=== PATIENT | male | born 1950 | race Hispanic/Latino ===

== ENCOUNTER 2016-08-14 09:20 | Emergency (ER) | payer OTHER ==
[2016-08-14 09:40] VITALS: O2SAT 100
[2016-08-14] MEDS ORDERED: Sodium Chloride 0.9% 500 ML IV ONE ×2 (10:15→10:49)
[2016-08-14] MEDS ORDERED: Sodium Chloride 0.9% 0 ML ONE (10:45)
[2016-08-14 10:48] LABS: EOS % 1.2 % (0.0-4.0); HEMATOCRIT 37.7 % (35.0-51.0); LYMPH # 0.8 K/uL (1.0-4.3); LYMPH % 21.7 % (20.0-40.0); MEAN CELL VOLUME 97.8 fL (80.0-94.0); MEAN CORPUSCULAR HEMOGLOBIN 32.2 pg (27.0-31.0); MEAN CORPUSCULAR HGB CONC 32.9 g/dL (33.0-37.0); MEAN PLATELET VOLUME 7.4 fL (7.2-11.7); MONO # 0.3 K/uL (0.0-0.8); RED CELL DISTRIBUTION WIDTH 12.9 % (11.5-14.5); WHITE BLOOD COUNT 3.7 K/uL (4.8-10.8)
[2016-08-14 10:54] LABS: CHLORIDE 101 mmol/L (98-107); POTASSIUM 3.7 mmol/L (3.6-5.2); SODIUM 138 mmol/L (132-148)
[2016-08-14 10:56] LABS: GFR AFRICAN-AMERICAN > 60; RBC URINE < 1 /hpf (0-3); URINE BACTERIA RARE (<OCC); URINE BILIRUBIN NEGATIVE (NEGATIVE); URINE BLOOD NEGATIVE (NEGATIVE); URINE COLOR Yellow (YELLOW); URINE GLUCOSE (UA) NORMAL (Normal); URINE KETONE TRACE mg/dL (NEGATIVE); URINE LEUKOCYTE ESTERASE NEG Leu/uL (Negative); URINE PROTEIN NEGATIVE (NEGATIVE); URINE UROBILINOGEN NORMAL mg/dL (0.2-1.0); WBC URINE 1 /hpf (0-5)
[2016-08-14 10:57] LABS: ALB/GLOB RATIO 1.2 (1.0-2.1); ALKALINE PHOSPHATASE 113 U/L (38-126); ALT/SGPT 20 U/L (21-72); AST/SGOT 23 U/L (17-59); BILIRUBIN,TOTAL 0.5 mg/dL (0.2-1.3); BLOOD UREA NITROGEN 14 mg/dL (9-20); CALCIUM 7.6 mg/dl (8.6-10.4); CARBON DIOXIDE 26 mmol/L (22-30); GLUCOSE,RANDOM 90 mg/dL (75-110)
[2016-08-14 10:59] LABS: INR 1.1
--- NOTE | 2016-08-14 11:04 | RAD ---
Chest x-ray single frontal view History: Weakness. Comparison: None available. Findings: Hyperinflation of the lung concepcion suggestive for COPD and or emphysematous changes. Upper lobe granulomatous changes. No focal infiltrate or effusion. Impression: No acute infiltrate or effusion.
--- NOTE | 2016-08-14 11:39 | C.PDOC ---
History Of Present Illness 66 y/o male presents to the ED for evaluation of generalized weakness which began approx1 year ago. Patient also reports an unintentional 50 pound weight loss within the past year. Patient notes he has been experiencing generalized body aches and headache this weekend. Patient states his PMD is Dr. Gary, whose office is located in [place]. He underwent bloodwork several weeks ago but has not followed up with the office to discuss results. He denies fever, chills, chest pain, shortness of breath, abdominal pain, nausea, vomiting, diarrhea, dysuria/hematuria. Time Seen by Provider: 08/14/16 09:41 Chief Complaint (Nursing): Medical Clearance History Per: Patient History/Exam Limitations: no limitations Onset/Duration Of Symptoms: Other (approx 1 year ) Current Symptoms Are (Timing): Still Present Severity: Mild Additional History Per: Patient Past Medical History Reviewed: Historical Data, Nursing Documentation, Vital Signs Vital Signs: Last Vital Signs Temp 97.8 F 08/14/16 11:45 Pulse 64 08/14/16 11:45 Resp 16 08/14/16 11:45 BP 160/80 H 08/14/16 11:45 Pulse Ox 100 08/14/16 14:28 - Medical History PMH: HTN Surgical History: No Surg Hx Family History: States: No Known Family Hx - Social History Hx Alcohol Use: No Hx Substance Use: No - Immunization History Hx Tetanus Toxoid Vaccination: No Hx Influenza Vaccination: No Hx Pneumococcal Vaccination: No Review Of Systems Except As Marked, All Systems Reviewed And Found Negative. Constitutional: Positive for: Weakness (generalized ), Weight loss (around 50lbs. ), Other (+generalized body aches ) Cardiovascular: Negative for: Chest Pain, Palpitations Respiratory: Negative for: Cough, Shortness of Breath Gastrointestinal: Negative for: Nausea, Vomiting, Abdominal Pain, Diarrhea Genitourinary: Negative for: Dysuria, Hematuria Neurological: Positive for: Headache Physical Exam - Physical Exam Appears: Well, Non-toxic, No Acute Distress, Other (frail appearing ) Skin: Warm, Dry, Ecchymosis (scattered ecchymoses B/L extremities ) Head: Atraumatic, Normacephalic Eye(s): bilateral: Normal Inspection, PERRL, EOMI Oral Mucosa: Moist Throat: Normal, No Erythema, No Exudate Neck: Normal, Normal ROM, Supple Cardiovascular: Rhythm Regular Respiratory: Normal Breath Sounds, No Rales, No Rhonchi, No Wheezing Gastrointestinal/Abdominal: Normal Exam, Bowel Sounds, Soft, No Tenderness Extremity: Normal ROM, No Tenderness, No Calf Tenderness, No Deformity, No Swelling Extremity: Bilateral: Atraumatic, Normal Color And Temperature, Normal ROM Pulses: Left Dorsalis Pedis: Normal, Right Dorsalis Pedis: Normal Neurological/Psych: Oriented x3, Normal Speech, Normal Cognition Gait: Steady ED Course And Treatment - Laboratory Results Result Diagrams: 08/14/16 10:42 08/14/16 10:42 ECG: Interpreted By Me, Viewed By Me, Discussed With On Air Announcer ECG Rhythm: Sinus Rhythm, R BBB ECG Interpretation: No Acute Changes, No Changes From Prior (05/21/2015) Interpretation Of ECG: Normal Sinus Rhythm at rate 65bpm. Normal axis. Right Bundle Branch Block. No acute ST/T wave changes. No changes from prior EKG from 05/21/2015. O2 Sat by Pulse Oximetry: 100 (on RA) Pulse Ox Interpretation: Normal - Other Rad CXR X-Ray: Interpreted by Me, Viewed By Me, Read By Radiologist Interpretation: Accession No. : [id number]. Patient Name / ID : ANTONIO MOMIN / [id number]. Exam Date : 08/14/2016 10:16:48 ( Approved ). Study Comment : Sex / Age : M / 66Y. Creator : Alfonso Scanlon MD. Dictator : Alfonso Scanlon MD. Flush Tester : V Block Saw Operator : Alfonso Scanlon MD. Approver2 : Report Date : 08/14/2016 11:02:45. My Comment : . Chest x-ray single frontal view. History: Weakness. Comparison: None available. Findings: Hyperinflation of the lung concepcion suggestive for COPD and or emphysematous changes. Upper lobe granulomatous changes. No focal infiltrate or effusion. Impression: No acute infiltrate or effusion. Progress Note: Blood work, CXR, EKG ordered and reviewed. Patient given IV NS bolus. Reevaluation Time: 11:40 Reassessment Condition: Improved (Patient reassessed, currently resting comfortably, in no current pain/distress. Blood work unremarkable except for mild elevation in PT/PTT. CXR and EKG also (-). Patient is comfortable being discharged home, was instructed to follow up with PMD in 1-2 days. He was given copies of all results, and he understands he should return to ED if symptoms worsen.) Disposition Counseled Patient/Family Regarding: Studies Performed, Diagnosis, Need For Followup - Disposition Referrals: Edith Gary MD [Primary Care Provider] - Disposition: HOME/ ROUTINE Disposition Time: 11:40 Condition: STABLE Additional Instructions: FOLLOW UP WITH YOUR DOCTOR IN 1-2 DAYS, AND BRING RESULTS TO HIM/HER DRINK PLENTY OF FLUIDS RETURN TO ER IF SYMPTOMS WORSEN Instructions: Viral Syndrome (ED), Weakness (ED) Forms: Work Excuse Print Language: HEBREW - POA Present On Arrival: None - Clinical Impression Clinical Impression: Medical assessment, Generalized weakness - Scribe Statement The provider has reviewed the documentation as recorded by the Scribe (Keyana Barone) Provider Attestation: All medical record entries made by the Scribe were at my direction and personally dictated by me. I have reviewed the chart and agree that the record accurately reflects my personal performance of the history, physical exam, medical decision making, and the department course for this patient. I have also personally directed, reviewed, and agree with the discharge instructions and disposition.
[2016-08-14 11:46] VITALS: BP 160/80; PULSE 64; RESP 16; TEMP 97.8
--- NOTE | 2016-08-16 12:01 | CARD ---
APPROVED REPORT EKG Measurement Heart [id number] <Conclusion> Normal sinus rhythm Right bundle branch block Abnormal ECG
== END 2016-08-14 11:48 | disposition home or self-care (01) ==
LOC: C.ER 09:20 → SUPCPDRO 09:20 → C.ER 11:48
DX: R53.1 Weakness (principal)
CPT/HCPCS: 71010; 80053; 81001; 83690; 85025; 85610; 85730; 96360; 99283; J7040

== ENCOUNTER 2016-10-09 08:05 | Emergency (ER) | payer OTHER ==
[2016-10-09 08:16] VITALS: RESP 18; O2SAT 100
[2016-10-09 10:13] LABS: RBC URINE < 1 /hpf (0-3); URINE BACTERIA RARE (<OCC); URINE BILIRUBIN NEGATIVE (NEGATIVE); URINE BLOOD NEGATIVE (NEGATIVE); URINE COLOR Yellow (YELLOW); URINE GLUCOSE (UA) NORMAL (Normal); URINE KETONE NEGATIVE (NEGATIVE); URINE LEUKOCYTE ESTERASE NEG Leu/uL (Negative); URINE PROTEIN NEGATIVE (NEGATIVE); URINE UROBILINOGEN NORMAL mg/dL (0.2-1.0); WBC URINE < 1 /hpf (0-5)
[2016-10-09 11:14] VITALS: TEMP 97.6
--- NOTE | 2016-10-09 11:17 | C.PDOC ---
History Of Present Illness 66-year-old male, presents to the emergency department with complaints of feeling "under the weather" that is associated with a runny nose, headache and body aches, since yesterday. Patient states he feels better today. He also notes increased urinary frequency. Denies dysuria, fevers, vomiting or rashes. No other complaints at this time. Time Seen by Provider: 10/09/16 09:08 Chief Complaint (Nursing): Flu-like Symptoms History Per: Patient History/Exam Limitations: no limitations Onset/Duration Of Symptoms: Days Past Medical History Reviewed: Historical Data, Nursing Documentation, Vital Signs Vital Signs: Last Vital Signs Temp 97.6 F 10/09/16 11:28 Pulse 59 L 10/09/16 11:28 Resp 18 10/09/16 11:28 BP 134/79 10/09/16 11:28 Pulse Ox 100 10/09/16 12:03 - Medical History PMH: HTN Surgical History: Tonsillectomy Family History: States: No Known Family Hx - Social History Hx Alcohol Use: No Hx Substance Use: No - Immunization History Hx Tetanus Toxoid Vaccination: No Hx Influenza Vaccination: No Hx Pneumococcal Vaccination: No Review Of Systems Constitutional: Positive for: Malaise ENT: Positive for: Nose Discharge Gastrointestinal: Negative for: Nausea, Vomiting Genitourinary: Positive for: Frequency. Negative for: Dysuria Musculoskeletal: Negative for: Back Pain Neurological: Positive for: Headache Physical Exam - Physical Exam Appears: Non-toxic, No Acute Distress Skin: Warm, Dry, No Rash Eye(s): bilateral: Normal Inspection, PERRL Ear(s): Bilateral: Normal Nose: Normal Oral Mucosa: Moist Lips: Normal Appearing Throat: No Erythema, No Exudate Neck: Normal ROM, Supple Cardiovascular: Rhythm Regular, No Murmur Respiratory: Normal Breath Sounds Extremity: Normal ROM ED Course And Treatment O2 Sat by Pulse Oximetry: 100 (on RA) Pulse Ox Interpretation: Normal Medical Decision Making Medical Decision Making: On re-exam, the patient reports improvement of symptoms. BP improved. Lungs are CTA, heart is RRR, abdomen is soft, non-tender and patient is tolerating PO well. Ambulatory in the ED with steady gait. Follow up with the medical doctor within 1-2 days. Return if worsened. Disposition - Disposition Referrals: [facility] [Outside] Disposition: HOME/ ROUTINE Disposition Time: 11:14 Condition: GOOD Additional Instructions: Follow up with the medical doctor within 1-2 days without fail. Return if worsened Instructions: Viral Syndrome (ED) Forms: Work Excuse - Clinical Impression Clinical Impression: Influenza-like illness - PA / RECREATION ASSISTANT / Resident Statement MD/DO has reviewed & agrees with the documentation as recorded. - Scribe Statement The provider has reviewed the documentation as recorded by the Scribe (Harika Cruz) All medical record entries made by the Scribe were at my direction and personally dictated by me. I have reviewed the chart and agree that the record accurately reflects my personal performance of the history, physical exam, medical decision making, and the department course for this patient. I have also personally directed, reviewed, and agree with the discharge instructions and disposition.
[2016-10-09 11:29] VITALS: BP 134/79; PULSE 59
== END 2016-10-09 11:45 | disposition home or self-care (01) ==
LOC: C.ER 08:05
DX: J11.1 Influenza due to unidentified influenza virus with other respiratory manifestations (principal)